=== PATIENT | male | born 2000 | race Caucasian/White ===

== ENCOUNTER 2022-01-07 06:00 | Emergency (ER) | payer OTHER, SELFPAY ==
[2022-01-07 06:11] VITALS: BP 122/86; PULSE 81; RESP 16; TEMP 36.6; O2SAT 96; BMI 17.4
--- NOTE | 2022-01-07 06:24 | ED.URI ---
HPI - URI/Sore Throat <Beatrice Chandra DO - Last Filed: 01/07/22 22:15> General Chief Complaint: Upper Respiratory Symptoms Stated Complaint: SORE THROAT Time Seen by Provider: 01/07/22 06:23 Source: patient Mode of arrival: Ambulatory History of Present Illness HPI Narrative: Patient is a healthy 21-year-old male who presents with sore throat ongoing for last 4 days. He says progressively gotten worse. He denies any fever chills or cough. He he denies any headache or neck pain. He has not taken anything for pain or discomfort. He reports that while sleeping it sounds like he is choking according to his girlfriend Related Data Allergies Allergy/AdvReac Type Severity Reaction Status Date / Time No Known Drug Allergies Allergy Verified 01/07/22 06:15 Review of Systems <Beatrice Chandra DO - Last Filed: 01/07/22 22:15> Review of Systems Narrative: GENERAL: Denies chills,fever HEENT: See HPI RESPIRATORY: Denies dyspnea, cough, wheezing CARDIOVASCULAR: Denies chest pain, palpitations GASTROINTESTINAL: Denies nausea, vomiting MUSCULOSKELETAL: Denies extremity pain, injury SKIN: No rash, no laceration, no pruritus NEUROLOGIC: Denies weakness, dizziness, headache, numbness 8 point review of systems is negative except for those stated above and HPI Patient History <DO Obie Bahena Last Filed: 01/07/22 22:15> Social History Smoking Status: Never smoker Smoking Status: Never smoker Substance Use Type: does not use Exam <DO Obie Bahena Last Filed: 01/07/22 22:15> Initial Vital Signs Initial Vital Signs: Vital Signs Temperature 98 F 01/07/22 06:11 Pulse Rate 81 01/07/22 06:11 Respiratory Rate 16 01/07/22 06:11 Blood Pressure 122/86 01/07/22 06:11 Pulse Oximetry 96 01/07/22 06:11 Oxygen Delivery Method 01/07/22 06:11 GENERAL: Alert well-appearing 21-year-old male and in no acute distress. HEENT: Head atraumatic,EOMI, pupils reactive, face symmetric, PHARYNX: Minimal erythema no uvula deviation no uvula swelling no tonsillar exudate CARDIOVASCULAR: Regular rate and rhythm without murmurs, rubs or gallops. RESPIRATORY: Breath sounds equal bilaterally, no wheezes rales or rhonchi. EXTREMITIES: Normal range of motion, no clubbing or edema. Neurovascularly intact NEUROLOGICAL: Alert and oriented x4. SKIN: Warm, dry, no laceration, no petechiae, no rashes or lesions. <Mikey Fay MD - Last Filed: 01/07/22 11:55> Initial Vital Signs Initial Vital Signs: Vital Signs Temperature 98 F 01/07/22 06:11 Pulse Rate 81 01/07/22 06:11 Respiratory Rate 16 01/07/22 06:11 Blood Pressure 122/86 01/07/22 06:11 Pulse Oximetry 96 01/07/22 06:11 Oxygen Delivery Method 01/07/22 06:11 Course <Beatrice Chandra DO - Last Filed: 01/07/22 22:15> Orders Ordered: Discontinued Medications Ibuprofen (Ibuprofen 400 Mg Tablet) 800 mg PO NOW ONE Stop: 01/07/22 06:46 Last Admin: 01/07/22 06:53 Dose: 800 mg Documented By: SUNITA Vital Signs Vital signs: Vital Signs - 8 hr 01/07/22 06:11 01/07/22 08:12 Temperature 98 F Pulse Rate 81 75 Respiratory Rate 16 16 Blood Pressure 122/86 118/65 Pulse Oximetry 96 97 Oxygen Delivery Method Room Air Room Air <Mikey Fay MD - Last Filed: 01/07/22 11:55> Course Course Narrative: January 07, 2022 at 7:[address] Chandra, viral swab is pending. Throat swab is reassuring. Exam is reassuring. Orders Ordered: Discontinued Medications Ibuprofen (Ibuprofen 400 Mg Tablet) 800 mg PO NOW ONE Stop: 01/07/22 06:46 Last Admin: 01/07/22 06:53 Dose: 800 mg Documented By: SUNITA Reevaluation(s) Reevaluation #1: Reviewed results with patient. Agrees with treatment plan. No antibiotics until culture results. Likely viral source. Patient nontoxic. Work note provided. Return precautions reviewed. He desires discharge home Time: 08:07 Vital Signs Vital signs: Vital Signs - 8 hr 01/07/22 06:11 01/07/22 08:12 Temperature 98 F Pulse Rate 81 75 Respiratory Rate 16 16 Blood Pressure 122/86 118/65 Pulse Oximetry 96 97 Oxygen Delivery Method Room Air Room Air MDM - URI/Sore Throat <Beatrice Chandra DO - Last Filed: 01/07/22 22:15> Lab Data Labs: Lab Results 01/07/22 Range/Units 06:25 SARS-CoV-2 (PCR) Negative (Negative) Influenza A (RT-PCR) Flu a negative (NEGATIVE) Influenza B (RT-PCR) Flu b negative (NEGATIVE) RSV (PCR) Negative (Negative) Point of Care Testing Rapid Strep A Negative <Mikey Fay MD - Last Filed: 01/07/22 11:55> Lab Data Labs: Lab Results 01/07/22 Range/Units 06:25 SARS-CoV-2 (PCR) Negative (Negative) Influenza A (RT-PCR) Flu a negative (NEGATIVE) Influenza B (RT-PCR) Flu b negative (NEGATIVE) RSV (PCR) Negative (Negative) Point of Care Testing Rapid Strep A Negative MDM Narrative Medical decision making narrative: Appropriate for discharge home. Exam and laboratory studies are reassuring. Likely viral source but culture of the throat is pending. Patient agrees with treatment plan. No antibiotics at this time until culture results. Patient not toxic. No blood work or imaging indicated. Return precautions reviewed with him. Work note provided. Discharge Plan Departure Patient Disposition: Home Clinical Impression: Pharyngitis Instructions: DI for Pharyngitis/Tonsillopharyngitis -- Adult Activity Restrictions/Additional Instructions: See your family doctor/base doctor this week for re-evaluation. Keep well hydrated. May continue Tylenol or ibuprofen for pain. Return if worse if any questions or concerns. Stand Alone Forms: Work Release Note Visit Report Forms: Patient Portal/API
[2022-01-07] MEDS: IBUPROFEN 400 MG TABLET 800 MG PO (06:53)
[2022-01-07 07:09] LABS: Influenza A - CEPHEID Flu A NEGATIVE (NEGATIVE); Influenza B - CEPHEID Flu B NEGATIVE (NEGATIVE); Respiratory Syncytial Virus Negative (Negative)
[2022-01-07 07:47] LABS: COVID-19 CEPHEID 4-PLEX PCR Negative (Negative)
[2022-01-07 08:12] VITALS: BP 118/65; PULSE 75; RESP 16; O2SAT 97
== END 2022-01-07 08:12 | disposition home or self-care (01) ==
PROVIDERS: Emergency Medicine; Emergency Provider Emergency Medicine
DX: J02.9 Acute pharyngitis, unspecified (principal); Z20.822 Contact with and (suspected) exposure to COVID-19
CPT/HCPCS: 0241U; 87070; 87880; 99282; 99283